=== PATIENT | male | born 1955 ===

== ENCOUNTER 2023-01-15 05:46 | Day surgery (SDC) | payer OTHER ==
[~2023-01-15 05:46] MED LIST: ALTACE10 MG PO; B-COMPLEX1 EACH PO; COMPLETE OMEGA1 EACH PO
== END 2023-01-15 17:45 | disposition home or self-care (01) ==
LOC: CIR.AMB 05:46
PROVIDERS: ATTEND Colon & Rectal Surgery
DX: K64.2 Third degree hemorrhoids (principal); K64.4 Residual hemorrhoidal skin tags; K92.1 Melena; Z20.822 Contact with and (suspected) exposure to COVID-19